=== PATIENT | male | born 1950 | race Caucasian/White ===

== ENCOUNTER 2025-03-17 19:12 | Emergency (ER) | payer MEDICARE, BC ==
[2025-03-17 19:18] VITALS: TEMP 98.1
--- NOTE | 2025-03-17 19:36 | ED ---
General Adult HPI - General Chief complaint: Syncope Stated complaint: Syncope Time Seen by Provider: 03/17/25 19:23 Source: patient, EMS - History of Present Illness Initial comments: Dictation was produced using [employer] dictation software. please excuse any grammatical, word or spelling errors. Chief Complaint: 74-year-old male with presyncope History of Present Illness: 74-year-old male presents emergency department for presyncope. Patient has h a handful of episodes of July last year. Today he was in his usual state of health when all of a sudden he started to feel dizzy and faint. Has not had an extensive cardiac workup regarding this. He does have a history of valve replacement. Since being in the ER his symptoms have mostly resolved. States that he feels quite well currently. Denies any palpitations prior to the onset of his symptoms. The ROS documented in this emergency department record has been reviewed and confirmed by me. Those systems with pertinent positive or negative responses have been documented in the HPI. All other systems are other negative and/or noncontributory. - Related Data Home Medications Medication Instructions Recorded Confirmed Lisinopril-Hctz 20-25 mg 1 tab PO HS 06/28/15 08/01/15 [Zestoretic 20-25] Pravastatin Sodium [Pravachol] 20 mg PO HS 06/28/15 08/01/15 Warfarin Sodium [Coumadin] 6 mg PO SUMOFRSA 06/28/15 08/01/15 Warfarin [Coumadin] 5 mg PO TUWETH 06/28/15 08/01/15 L.acidoph,Paracasei, B.lactis 1 each PO DAILY 08/01/15 08/03/15 [Probiotic] Previous Rx's Medication Instructions Recorded Docusate [Colace] 100 mg PO BID #30 capsule 08/01/15 HYDROcodone/APAP 5-325MG [[place] 5] 1 each PO Q4HR PRN #30 tab 08/01/15 Enoxaparin [Lovenox] 100 mg SQ Q12H #6 syringe 08/03/15 Allergies Allergy/AdvReac Type Severity Reaction Status Date / Time No Known Allergies Allergy Verified 03/17/25 19:18 Review of Systems ROS Statement: Those systems with pertinent positive or pertinent negative responses have been documented in the HPI. ROS Other: All systems not noted in ROS Statement are negative. Past Medical History Past Medical History: Cancer, GERD/Reflux, Hyperlipidemia, Hypertension, Prostate Disorder Additional Past Medical History / Comment(s): pancreatitis,prostate ca 2004 had prostate removed, then cancer returned in 2008 so radation tx done into 2009. 06/2015-appendiceal abscess/sepsis. rash on leg History of Any Multi-Drug Resistant Organisms: None Reported Past Surgical History: Heart Catheterization, Prostate Surgery Additional Past Surgical History / Comment(s): 1969' [place] cyst removed rt knee, 2000 mitral valve replacement PICC line/later removal. Past Anesthesia/Blood Transfusion Reactions: No Reported Reaction Past Psychological History: No Psychological Hx Reported Smoking Status: Never smoker Past Alcohol Use History: None Reported Past Drug Use History: None Reported - Past Family History Mother Additional Family Medical History / Comment(s): from aaa Sister(s) Family Medical History: Cancer General Exam - General Exam Comments Initial Comments: PHYSICAL EXAM: General Impression: Alert and oriented x3, not in acute distress HEENT: Normocephalic atraumatic, extra-ocular movements intact, pupils equal and reactive to light bilaterally, mucous membranes moist. Cardiovascular: Heart regular rate and rhythm Chest: Able to complete full sentences, no retractions, no tachypnea Abdomen: abdomen soft, non-tender, non-distended, no organomegaly Musculoskeletal: Pulses present and equal in all extremities, no peripheral edema Motor: no focal deficits noted Neurological: CN II-XII grossly intact, no focal motor or sensory deficits noted Skin: Intact with no visualized rashes Psych: Normal affect and mood Course Vital Signs 03/17/25 03/17/25 19:12 20:22 Temperature 98.1 F Pulse Rate 96 90 Respiratory 22 18 Rate Blood Pressure 157/84 151/89 O2 Sat by Pulse 99 95 Oximetry EKG Findings - EKG Comments: EKG Findings:: My EKG interpretation: Ventricular rate 95, sinus rhythm, NM 121, QRS 94, QTc 4 7. No NM prolongation, no QTC prolongation, no ST or T-wave changes noted. Overall, this EKG is unremarkable Medical Decision Making - Medical Decision Making Was pt. sent in by a medical professional or institution (, PA, HORSE TRADER, urgent care, hospital, or care home...) When possible be specific @ -No Did you speak to anyone other than the patient for history (EMS, parent, family, police, friend...)? What history was obtained from this source @ -No Did you review nursing and triage notes (agree or disagree)? Why? @ -I reviewed and agree with nursing and triage notes Were old charts reviewed (outside hosp., previous admission, EMS record, old EKG, old radiological studies, urgent care reports/EKG's, care home records)? Report findings @ -No old charts were reviewed Differential Diagnosis (chest pain, altered mental status, abdominal pain women, abdominal pain men, vaginal bleeding, musculoskeletal, weakness, fever, dyspnea, syncope, headache, dizziness, GI bleed, back pain, seizure, CVA, palpatations, mental health)? @ -Differential Syncope: Valvular disease, hypertrophic cardiomyopathy, pulmonary embolism, tamponade, tachycardia, bradycardia, [place], hypovolemia, hemorrhage, dissection, anemia, intracranial hemorrhage, seizure, hypoglycemia, carbon monoxide poisoning, this is not meant to be an all-inclusive list. EKG interpreted by me (3pts min.). @ -see above X-rays interpreted by me (1pt min.). @ -X-ray of the chest shows no acute processes CT interpreted by me (1pt min.). @ -None done U/S interpreted by me (1pt. min.). @ -None done What testing was considered but not performed or refused? (CT, X-rays, U/S, labs)? Why? @ -None What meds were considered but not given or refused? Why? @ -None Was smoking cessation discussed for >3mins.? @ -No Were there social determinants of health that impacted care today? How? (Homelessness, low income, unemployed, alcoholism, drug addiction, transportation, low edu. Level, literacy, decrease access to med. care, intermediate, rehab)? @ -No Was there de-escalation of care discussed even if they declined (Discuss DNR or withdrawal of care, Hospice)? DNR status @ -No What co-morbidities impacted this encounter? (DM, HTN, Smoking, COPD, CAD, Cancer, CVA, ARF, Chemo, Hep., AIDS, mental health diagnosis, sleep apnea, morbid obesity)? @ -History of heart valve Was patient admitted / discharged? Hospital course, mention meds given and route, prescriptions, significant lab abnormalities, going to OR and other pertinent info. @ -74-year-old male presents emergency department after presyncopal episode. Vital signs upon arrival are within acceptable limits. Patient states he feels well at the bedside. Physical examination is benign. He does have history of heart valve. Laboratory evaluation is unremarkable. Patient observed emergency department for approximately 1 hour and 30 minutes. Well-appearing at the bedside. Patient offered observation admission with cardiology consultation cardiac monitoring. Patient refused and preferred to be discharged follow-up with cardiology outpatient. Return precautions discussed. Did you discuss the management of the patient with other professionals (professionals i.e. , PA, HORSE TRADER, lab, RT, psych nurse, director of social services, videotape editor, teacher, philanthropy officer, case preparer and liner)? Give summary @ -No Was critical care preformed (if so, how long)? @ -No Undiagnosed new problem with uncertain prognosis? @ -No Drug Therapy requiring intensive monitoring for toxicity (Heparin, Nitro, Insulin, Cardizem)? @ -No Were any procedures done? @ -No Diagnosis/symptom? Acute, or Chronic, or Acute on Chronic? Uncomplicated (without systemic symptoms) or Complicated (systemic symptoms)? @ -Presyncope Side effects of treatment? @ -No Exacerbation, Progression, or Severe Exacerbation? @ -No Poses a threat to life or bodily function? How? (Chest pain, [place], [place], pneumonia, PE, COPD, DKA, ARF, appy, cholecystitis, CVA, Diverticulitis, Homicidal, Suicidal, threat to staff... and all critical care pts) @ -yes - Lab Data Result diagrams: 03/17/25 19:42 03/17/25 19:42 Lab Results 03/17/25 03/17/25 03/17/25 Range/Units 19:42 19:42 19:42 WBC 8.01 (4.50-10.00) 10*3/uL RBC 5.00 (4.40-5.60) 10*6/uL Hgb 15.2 (13.0-17.0) g/dL Hct 44.4 (39.6-50.0) % MCV 88.8 (80.0-97.0) fL MCH 30.4 (27.0-32.0) pg MCHC 34.2 (32.0-37.0) g/dL Plt Count 205 (140-440) 10*3/uL MPV 9.5 (9.5-12.2) fL Immature Gran % (Auto) 0.2 % Neutrophils % 77.8 % Lymphocytes % 10.6 % Monocytes % 9.2 % Eosinophils % 1.7 % Basophils % 0.5 % Immature Gran # 0.02 (0.00-0.04) 10*3/uL Neutrophils # 6.22 (1.80-7.70) 10*3/uL Lymphocytes # 0.85 L (0.90-5.00) 10*3/uL Monocytes # 0.74 (0.20-1.00) 10*3/uL Eosinophils # 0.14 (0.04-0.35) 10*3/uL Basophils # 0.04 (0.00-0.10) 10*3/uL PT 22.5 H (10.0-12.5) sec INR 2.2 H (<1.2) APTT 29.6 (22.0-30.0) sec Sodium 134 L (137-145) mmol/L Potassium 4.0 (3.5-5.1) mmol/L Chloride 100 (98-107) mmol/L Carbon Dioxide 25 (22-30) mmol/L Anion Gap 9 mmol/L BUN 21 H (9-20) mg/dL Creatinine 1.01 (0.66-1.25) mg/dL Est GFR (CKD-EPI)AfAm 84 (>60 ml/min/1.73 sqM) Est GFR (CKD-EPI)NonAf 73 (>60 ml/min/1.73 sqM) Glucose 105 H (74-99) mg/dL Calcium 9.5 (8.4-10.2) mg/dL Total Bilirubin 1.6 H (0.2-1.3) mg/dL AST 27 (17-59) U/L ALT 16 (4-49) U/L Alkaline Phosphatase 81 (38-126) U/L Troponin I (0.000-0.034) ng/mL Total Protein 6.6 (6.3-8.2) g/dL Albumin 4.3 (3.5-5.0) g/dL 03/17/25 Range/Units 19:42 WBC (4.50-10.00) 10*3/uL RBC (4.40-5.60) 10*6/uL Hgb (13.0-17.0) g/dL Hct (39.6-50.0) % MCV (80.0-97.0) fL MCH (27.0-32.0) pg MCHC (32.0-37.0) g/dL Plt Count (140-440) 10*3/uL MPV (9.5-12.2) fL Immature Gran % (Auto) % Neutrophils % % Lymphocytes % % Monocytes % % Eosinophils % % Basophils % % Immature Gran # (0.00-0.04) 10*3/uL Neutrophils # (1.80-7.70) 10*3/uL Lymphocytes # (0.90-5.00) 10*3/uL Monocytes # (0.20-1.00) 10*3/uL Eosinophils # (0.04-0.35) 10*3/uL Basophils # (0.00-0.10) 10*3/uL PT (10.0-12.5) sec INR (<1.2) APTT (22.0-30.0) sec Sodium (137-145) mmol/L Potassium (3.5-5.1) mmol/L Chloride (98-107) mmol/L Carbon Dioxide (22-30) mmol/L Anion Gap mmol/L BUN (9-20) mg/dL Creatinine (0.66-1.25) mg/dL Est GFR (CKD-EPI)AfAm (>60 ml/min/1.73 sqM) Est GFR (CKD-EPI)NonAf (>60 ml/min/1.73 sqM) Glucose (74-99) mg/dL Calcium (8.4-10.2) mg/dL Total Bilirubin (0.2-1.3) mg/dL AST (17-59) U/L ALT (4-49) U/L Alkaline Phosphatase (38-126) U/L Troponin I 0.012 (0.000-0.034) ng/mL Total Protein (6.3-8.2) g/dL Albumin (3.5-5.0) g/dL Disposition Clinical Impression: Pre-syncope Disposition: HOME SELF-CARE Condition: Fair Instructions (If sedation given, give patient instructions): Near Syncope (ED) Is patient prescribed a controlled substance at d/c from ED?: No Referrals: Katarzyna Thompson, NPC [Family Provider] - 1-2 days Time of Disposition: 20:46
[2025-03-17 19:48] LABS: Basophils # (A) 0.04 10*3/uL (0.00-0.10); Basophils % (A) 0.5 %; Eosinophils # (A) 0.14 10*3/uL (0.04-0.35); Eosinophils % (A) 1.7 %; HCT 44.4 % (39.6-50.0); HGB 15.2 g/dL (13.0-17.0); Lymphocytes # (A) 0.85 10*3/uL (0.90-5.00); Lymphocytes % (A) 10.6 %; MCH 30.4 pg (27.0-32.0); MCHC 34.2 g/dL (32.0-37.0); MCV 88.8 fL (80.0-97.0); Mean Platelet Volume 9.5 fL (9.5-12.2); Monocytes # (A) 0.74 10*3/uL (0.20-1.00); Monocytes % (A) 9.2 %; Neutrophils # (A) 6.22 10*3/uL (1.80-7.70); Neutrophils % (A) 77.8 %; Platelet Count 205 10*3/uL (140-440); WBC 8.01 10*3/uL (4.50-10.00)
[2025-03-17 19:53] LABS: ALT 16 U/L (4-49); AST 27 U/L (17-59); African American GFR (CKD) 84 (>60 ml/min/1.73 sqM); Albumin 4.3 g/dL (3.5-5.0); Alkaline Phosphatase 81 U/L (38-126); Anion Gap 9 mmol/L; Blood Urea Nitrogen 21 mg/dL (9-20); Calcium 9.5 mg/dL (8.4-10.2); Carbon Dioxide 25 mmol/L (22-30); Chloride 100 mmol/L (98-107); Glucose 105 mg/dL (74-99); Non-African American GFR(CKD) 73 (>60 ml/min/1.73 sqM); Sodium 134 mmol/L (137-145); Total Bilirubin 1.6 mg/dL (0.2-1.3); Total Protein 6.6 g/dL (6.3-8.2)
[2025-03-17 19:59] LABS: INR 2.2 (<1.2); Partial Thromboplastin Time 29.6 sec (22.0-30.0); Prothrombin Time 22.5 sec (10.0-12.5)
--- NOTE | 2025-03-17 20:03 | XR ---
EXAMINATION TYPE: XR chest 2V DATE OF EXAM: 03/17/2025 7:59 PM COMPARISON: Chest radiograph 07/03/2015. CLINICAL INDICATION: Male, 74 years old with history of syncope; [facility] TECHNIQUE: XR chest 2V Frontal and lateral views of the chest. FINDINGS: Lungs/Pleura: There is no evidence of pleural effusion, focal consolidation, or pneumothorax. Mild l eft lung base linear scarring/atelectasis. Pulmonary vascularity: Unremarkable. Heart/mediastinum: Cardiomediastinal silhouette is enlarged and stable. Median sternotomy wires. Musculoskeletal: No acute osseous pathology. Other findings: None IMPRESSION: No acute cardiopulmonary disease/process. [facility], , 03/17/2025 8:00 PM
[2025-03-17 20:29] VITALS: RESP 18
[2025-03-17 21:21] VITALS: BP 131/88; PULSE 89
== END 2025-03-17 21:22 | disposition home or self-care (01) ==
LOC: EC 19:12
DX: R55 Syncope and collapse (principal)
CPT/HCPCS: 36415; 71046; 80053; 84484; 85025; 85610; 85730; 93005; 99284